=== PATIENT | female | born 1965 | race Caucasian/White ===

== ENCOUNTER 2020-03-15 17:39 | Emergency (ER) | payer OTHER ==
[~2020-03-15] VITALS: Ht 160 cm; Wt 72.6 kg
[2020-03-15] MEDS ORDERED: VENTOLIN HFA 1818 GM INH (18:36)
[2020-03-15] MEDS ORDERED: ZPAK PO (18:36)
[2020-03-15] MEDS ORDERED: PREDNISONE 20 M20 MG PO (18:36)
[2020-03-15 20:20] VITALS: BP 189/79
== END 2020-03-15 20:20 | disposition home or self-care (01) ==
LOC: M.ERS 17:39
DX: U07.1 COVID-19 (principal); I10 Essential (primary) hypertension